=== PATIENT | male | born 1960 | race Caucasian/White ===

== ENCOUNTER → 2021-07-18 08:18 | Outpatient (BNVA) | payer MEDICARE, BC, SELFPAY | PROVIDERS: PCP Nurse Practitioner Family; Visit Provider Internal Medicine | DX: M25.50 Pain in unspecified joint (principal); M54.2 Cervicalgia; R76.8 Other specified abnormal immunological findings in serum; Z11.59 Encounter for screening for other viral diseases; M10.9 Gout, unspecified; Z11.1 Encounter for screening for respiratory tuberculosis; B35.1 Tinea unguium; L85.3 Xerosis cutis; Z87.891 Personal history of nicotine dependence | CPT/HCPCS: 99204 ==

== ENCOUNTER 2021-07-18 10:12 | Outpatient (CLI) | payer MEDICARE, BC, SELFPAY ==
--- NOTE | 2021-07-18 10:43 | XR_ITS ---
WS: [email or web address] Lateral views of cervical spine in the flexion, extension and neutral positions. 07/18/2021 Clinical Data: M10.9 - Gout, unspecified Comparison: Cervical spine, 12/25/2013. Findings: There is anterior cervical disc fusion at C3-C4 and C5-C6. There are large anterior osteophytes at C4 -C5 with disc narrowing. Flexion and extension effusions are stable and there is no subluxation. XR/XR cervical spine fl/ex [id number] Impression: 1. Anterior cervical disc fusions at C3-C4 and C5-C6 which are stable on flexio n and extension. 2. Anterior osteophytes at C4-C5 with disc narrowing.
--- NOTE | 2021-07-18 10:43 | XR_ITS ---
WS: [email or web address] Right hand, 2 views, 07/18/2021 Clinical Data: M10.9 - Gout, unspecified Comparison: None. Findings: No fractures or dislocations are seen. The soft tissues are unremarkable. There is degene rative change of the right third finger DIP joint.No periarticular demineralization or calcifications are seen. 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
--- NOTE | 2021-07-18 10:43 | XR_ITS ---
WS: [email or web address] Left hand, 2 views, 07/18/2021 Clinical Data: M10.9 - Gout, unspecified Comparison: None. Findings: No fractures or dislocations are seen. The soft tissues are unremarkable. There is osteoarthritic julienne nge at the left first MCP joint. There is a calcification adjacent to the left fifth finger DIP joint . No periarticular demineralization is seen. XR/XR hand LT 2V [id number] Impression: 1. 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 2. Small calcification adjacent to left fifth finger DIP joint.
--- NOTE | 2021-07-18 10:43 | XR_ITS ---
WS: [email or web address] Lumbar spine, 3 views, 07/18/2021 Clinical Data: M10.9 - Gout, unspecified Comparison: None. Findings: No compression fractures or subluxation is seen. There is degenerative disc narrowing at all levels f rom T12-L1 through L5-S1. There are prominent anterior osteophytes at all lumbar levels. The transver se processes and SI joints are normal. There are laminectomies at L4 and L5. There is calcification wall of the abdominal aorta but no aneurysm. XR/XR lumbar spine 2-3V* [id number] Impression: Severe osteoarthritis of all lumbar vertebral bodies with degenerative disc vargas rowing at all lumbar levels.
--- NOTE | 2021-07-18 10:43 | XR_ITS ---
WS: [email or web address] Right foot, 2 views, 07/18/2021 Clinical Data: M25.50 - Pain in unspecified joint Comparison: None. Findings: No fractures or dislocations are seen. No bone destruction or erosion is noted. There is osteoarthrit is of the tarsal bones. There is osteoarthritic narrowing of the right first MTP joint.There is a lar ge plantar spur. XR/XR foot RT 2V [id number] Impression: Osteoarthritis of the tarsal bones and the right first MTP joint.
--- NOTE | 2021-07-18 10:43 | XR_ITS ---
WS: [email or web address] Sacroiliac joints, 3 views, 07/18/2021 Clinical Data: L40.9 - Psoriasis, unspecified Comparison: None. Findings: The SI joints are normal in width. No erosion, sclerosis or destruction is seen. There are no fractur es or dislocations. The adjacent visualized pelvis and hips are unremarkable. XR/XR sacroiliac jts m 3V [id number] Impression: Negative SI joints.
--- NOTE | 2021-07-18 10:43 | XR_ITS ---
WS: [email or web address] Left foot, 2 views, 07/18/2021 Clinical Data: M25.50 - Pain in unspecified joint Comparison: None. Findings: No fractures or dislocations are seen. No bone destruction or erosion is noted. There is osteoarthrit ic change of the tarsal bones. There is osteoarthritic narrowing of the left first MTP joint. There i s a large plantar spur. XR/XR foot LT 2V [id number] Impression: Osteoarthritis of the tarsal bones and left first MTP joint.
--- NOTE | 2021-07-18 10:43 | XR_ITS ---
WS: [email or web address] Left ankle, 3 views, 07/18/2021 Clinical Data: M10.9 - Gout, unspecified Comparison: None. Findings: No fractures or dislocations are seen. The ankle mortise is normal. The talus and calcaneus are unrem arkable. There is soft tissue swelling over the medial and lateral malleolus.There is a large plantar spur. XR/XR ankle LT min 3V* [id number] Impression: Soft tissue swelling over medial and lateral malleolus.
--- NOTE | 2021-07-18 10:43 | XR_ITS ---
WS: [email or web address] Right ankle, 3 views, 07/18/2021 Clinical Data: M10.9 - Gout, unspecified Comparison: None. Findings: No fractures or dislocations are seen. The ankle mortise is normal. There is osteoarthritic change of the articulation between the talus and navicular. There is a large plantar spur.There is irregularit y inferior to the tip of the lateral malleolus and of the medial malleolus. There is osteoarthritic c hange adjacent to the medial aspect of the talus XR/XR ankle RT min 3V* [id number] Impression: Osteoarthritis of the tarsal bones.
[2021-07-18 11:52] LABS: Basophils % 0.3 %; Eosinophils # 0.2 10^3/uL (0.0-0.8); Eosinophils % 1.9 %; Hematocrit 45.5 % (42.0-52.0); Hemoglobin 14.6 g/dL (11.7-16.6); Lymphocytes # 2.7 10^3/uL (0.8-4.8); Lymphocytes % 23.1 %; Mean Corpuscular HGB Conc 32.1 g/dL (30.0-36.0); Mean Corpuscular Hemoglobin 27.9 pg (28.0-34.0); Mean Platelet Volume 11.7 fL (7.4-10.4); Monocytes # 0.8 10^3/uL (0.2-0.9); Monocytes % 7.2 %; Neutrophils # 7.68 10^3/uL (1.8-7.7); Neutrophils % 67.2 %; Nucleated Red Blood Cells % 0 %; Platelet Count 218 10^3/cmm (130-400); Red Blood Count 5.23 10^6/uL (4.1-5.3); Red Cell Distribution Width 13.5 % (12.1-15.1); White Blood Count 11.5 10^3/uL (4.0-10.0)
[2021-07-18 12:06] LABS: Add Urine Microscopic? YES; Bilirubin Urine Neg (Negative); Blood Urine 3+ (Negative); Glucose Urine UA Norm (Normal); Ketones Urine Negative (Negative); Leukocyte Esterase Urine Negative (Negative); Nitrate Urine Negative (Negative); Protein Urine Neg (Negative); Urine Appearance Clear (CLEAR); Urine Color Yellow (Yellow); Urobilinogen Urine Norm (Negative); pH Urine 7 (5-7)
[2021-07-18 12:16] LABS: Add Urine Culture? Yes; Bacteria Urine TRACE /hpf; Mucus Urine TRACE /hpf; RBC Urine 40-50 /hpf (0-2); Squamous Epithelial Cell Urine 0-4 /hpf (0-5)
[2021-07-18 12:25] LABS: Calcium 8.9 mg/dL (8.5-10.5)
[2021-07-18 12:32] LABS: Parathyroid Hormone 61.4 pg/mL (15-65)
[2021-07-18 12:44] LABS: 25 Hydroxy Vitamin D 19 ng/mL (30-100); Alanine Aminotransferase 35 U/L (0-41); Alkaline Phosphatase 87 IU/L (40-130); Anion Gap 13.1 (5-19); Aspartate Amino Transferase 25 U/L (0-40); Blood Urea Nitrogen 9 mg/dL (8-23); C Reactive Protein 4.3 mg/L (0.0-4.9); Calcium 8.9 mg/dL (8.5-10.5); Carbon Dioxide 27 mmol/L (22-29); Chloride 106 mmol/L (98-107); Ferritin 185 ng/mL (30-400); Globulin 2.9 g/dL (1.3-4.6); Glomerular Filtration Rate 167.9 mL/min (90-130); Glucose 95 mg/dL (65-115); Iron 83 ug/dL (59-158); Magnesium 2.1 mg/dL (1.7-2.3); Osmolality Calculated 292 mOsm/kg (285-295); Phosphorus 2.4 mg/dL (2.5-4.5); Potassium 4.1 mmol/L (3.5-5.1); Sodium 142 mmol/L (136-145); Thyroid Stimulating Hormone 0.79 uIU/mL (0.27-4.20); Total Bilirubin 0.6 mg/dL (0.15-1.2); Total Protein 6.9 g/dL (6.6-8.7); Uric Acid 7.1 mg/dL (3.4-7.0); Vitamin B12 381 pg/mL (232-1245)
[2021-07-18 12:48] LABS: Hepatitis B Core AB, Total Non-Reactive (Nonreactive); Hepatitis B Surface Antigen Non-Reactive (Nonreactive); Hepatitis C Virus Antibody Non-Reactive (Nonreactive)
[2021-07-21 14:47] LABS: CENTROMERE B ANTIBODY <1.0 NEG AI (<1.0 NEG); JO-1 ANTIBODY <1.0 NEG AI (<1.0 NEG); RNP ANTIBODY <1.0 NEG AI (<1.0 NEG); SCL-70 ANTIBODY <1.0 NEG AI (<1.0 NEG); SJOGREN'S ANTIBODY (SS-A) <1.0 NEG AI (<1.0 NEG); SM ANTIBODY <1.0 NEG AI (<1.0 NEG); SS-B <1.0 NEG AI (<1.0 NEG)
[2021-07-21 14:52] LABS: COMPLEMENT, TOTAL (CH50) >60 U/mL (31-60)
[2021-07-21 14:58] LABS: COMPLEMENT COMPONENT C3C 198 mg/dL (82-185); COMPLEMENT COMPONENT C4C 35 mg/dL (15-53)
[2021-07-21 15:10] LABS: Erythrocyte Sedimentation Rate 9 mm/hr (0-10)
[2021-07-21 15:43] LABS: Quantiferon Mitogen >10.00 IU/mL; Quantiferon Nil 0.02 IU/mL; Quantiferon Plus TB2 0.01 IU/mL; Quantiferon TB Gold NEGATIVE (NEGATIVE)
[2021-07-21 16:13] LABS: Cyclic Citrullinated Peptide <16 UNITS
[2021-07-22 14:22] LABS: THYROID PEROXIDASE ANTIBODIES 1 IU/mL (<9)
[2021-07-22 16:23] LABS: ANA SCREEN, IFA NEGATIVE (NEGATIVE)
[2021-07-24 15:27] LABS: DNA AB (DS) CRITHIDIA,IFA NEGATIVE (NEGATIVE)
== END 2021-07-18 10:13 | disposition home or self-care (01) ==
LOC: RAD 10:37
PROVIDERS: PCP Nurse Practitioner Family; Visit Provider Internal Medicine
DX: E78.5 Hyperlipidemia, unspecified (principal); L85.3 Xerosis cutis; M10.9 Gout, unspecified; M19.90 Unspecified osteoarthritis, unspecified site; Z98.890 Other specified postprocedural states; L40.9 Psoriasis, unspecified; M25.50 Pain in unspecified joint; D64.9 Anemia, unspecified; Z11.59 Encounter for screening for other viral diseases; Z11.1 Encounter for screening for respiratory tuberculosis
CPT/HCPCS: 36415; 72040; 72100; 72202; 73120; 73610; 73620; 80053; 81001; 82306; 82310; 82607; 82728; 83540; 83735; 83970; 84100; 84443; 84550; 85025; 85651; 86140; 86160; 86162; 86200; 86235; 86255; 86376; 86431; 86480; 86704; 86803; 87086; 87340

== ENCOUNTER → 2021-08-01 10:04 | Outpatient (BNVA) | payer MEDICARE, BC, SELFPAY | PROVIDERS: PCP Nurse Practitioner Family; Visit Provider Internal Medicine | DX: M25.50 Pain in unspecified joint (principal); E79.0 Hyperuricemia without signs of inflammatory arthritis and tophaceous disease; M48.10 Ankylosing hyperostosis [Forestier], site unspecified; M54.2 Cervicalgia; E55.9 Vitamin D deficiency, unspecified; E83.39 Other disorders of phosphorus metabolism | CPT/HCPCS: 99214 ==

== ENCOUNTER → 2023-05-31 14:17 | Outpatient (BNVA) | payer MEDICARE, BC, SELFPAY | PROVIDERS: PCP Nurse Practitioner Family; Referring Provider Nurse Practitioner Family; Visit Provider Internal Medicine Cardiovascular Disease | DX: M79.89 Other specified soft tissue disorders (principal); R06.02 Shortness of breath; I10 Essential (primary) hypertension; R06.09 Other forms of dyspnea | CPT/HCPCS: 36415; 80048; 83880; 99204 ==

== ENCOUNTER 2023-06-16 11:25 | Outpatient (CLI) | payer MEDICARE, BC, SELFPAY ==
--- NOTE | 2023-06-16 12:00 | USCV_ITS ---
Shannon Sofia Age: 63 Gender: M : 1960 Exam Date: 06/16/2023 11:58 Ordering Phys: Geno Hartley MD ([email or web address]) Technologist: CT Exam Location: [facility] – [place] Indication: HISTORY: PROCEDURES: FINDINGS: The veins were found to be easily compressible with spontaneous blood flow. Non pulsatile flow pattern. No significant venous reflux were noted CONCLUSIONS No evidence of DVT in the above-mentioned identifiable veins on the left side No significant venous reflux were noted in the above-mentioned veins Dr Geno Hartley MD [facility] (Electronically Signed) Final Date: 16 June 2023 18:49 S
--- NOTE | 2023-06-16 13:30 | USCV_ITS ---
Shannon Sofia Age: 63 Gender: M : 1960 Exam Date: 06/16/2023 12:15 Ordering Phys: Geno Hartley MD ([email or web address]) Technologist: CT Exam Location: [facility] – [place] Indication: BP: 128 / 75 HR: 57 Rhythm: Sinus Technical Quality: Adequate MEASUREMENTS (Male / Female) Normal Values 2D ECHO LV Chamber Size 5.2 cm RV Chamber Size 4.0 cm LVOT Diameter 2.2 cm LV Ejection Fraction MOD 2C 53.8 % LV Ejection Fraction 2C AL 55.3 % LA Diameter 5.1 cm LA Width 3.9 cm LA Height 4.8 cm RA Width 4.0 cm RA Height 5.2 cm Aorta at Sinotubular Diameter 2.5 cm M-MODE Aortic Annulus Diameter 3.5 cm LA Ao Ratio MM 1.5 MV E Point Septal Separation 1.1 cm DOPPLER AV Peak Velocity 123.0 cm/s LVOT Peak Velocity 74.0 cm/s AV Area Cont Eq vti 2.7 cm squared AV Area Cont Eq pk 2.3 cm squared MV Peak Velocity 88.0 cm/s MV Area PHT 2.9 cm squared Mitral E to A Ratio 0.9 MV E' Velocity 41.0 cm/s Mitral E to MV E' Ratio 7.7 Mitral E to LV E' Lateral Ratio 7.3 Mitral E to LV E' Septal Ratio 8.2 TR Peak Velocity 96.3 cm/s TR Peak Gradient 3.7 mmHg TV Peak E Velocity 53.0 cm/s Right Atrial Pressure 3.0 mmHg Pulmonary Artery Systolic Pressu 6.7 mmHg PV Peak Velocity 95.0 cm/s FINDINGS Left Ventricle Normal left ventricular size and systolic function, EF 57 %. No regional wall motion abnormalities. Grade I/IV diastolic dysfunction (abnormal relaxation filling pattern), normal to mildly elevated filling pressures. Right Ventricle The right ventricle is normal in size and function. Right Atrium Mildly increased right atrial size. Left Atrium Mildly increased left atrial size. Mitral Valve No gross abnormalities noted Aortic Valve Thickened aortic valve. Tricuspid Valve No gross abnormalities noted Pulmonic Valve No gross abnormalities noted Pericardium Normal pericardium without effusion. Aorta Normal ascending aorta dimension. IVC Inferior vena cava not visualized. CONCLUSIONS Normal left ventricular size and systolic function, EF 57 %. No regional wall motion abnormalities. Grade I/IV diastolic dysfunction (abnormal relaxation filling pattern), normal to mildly elevated filling pressures. Mild biatrial enlargement. Thickened aortic valve. There is no pericardial effusion. Technically somewhat difficult study because of poor ultrasonic window Dr Geno Hartley MD [facility] (Electronically Signed) Final Date: 17 June 2023 09:22 S
== END 2023-06-16 11:26 | disposition home or self-care (01) ==
PROVIDERS: PCP Nurse Practitioner Family; Visit Provider Internal Medicine Cardiovascular Disease
DX: R06.02 Shortness of breath (principal); R06.09 Other forms of dyspnea; I51.89 Other ill-defined heart diseases; I51.7 Cardiomegaly; I35.8 Other nonrheumatic aortic valve disorders; M79.89 Other specified soft tissue disorders
CPT/HCPCS: 93306; 93971

== ENCOUNTER 2025-05-10 08:01 | Outpatient (CLI) | payer MEDICARE, BC, SELFPAY ==
--- NOTE | 2025-05-10 08:09 | USCV_ITS ---
Shannon Sofia Age: 65 Gender: M : 1960 Exam Date: 05/10/2025 08:16 Ordering Phys: Colleen Bush APN Technologist: JOCELYNE Exam Location: [facility] Indication: LLE Swelling HISTORY: Lower extremity swelling. PROCEDURES: Venous duplex imaging was performed in only the left lower extremity. The following venous structures were evaluated: common femoral vein, profunda vein, proximal portion of the greater saphenous vein, superficial femoral vein, and the popliteal vein. In addition, the posterior tibial and peroneal trunk were evaluated. Serial compression, augmentation maneuvers, and spectral Doppler flow evaluation were performed. FINDINGS: No evidence of DVT seen in any vessel visualized at this time. CONCLUSIONS No evidence of left lower extremity DVT. Judson Rubalcava MD (Electronically Signed) Final Date: 10 May 2025 08:42 S
== END 2025-05-10 08:02 | disposition home or self-care (01) ==
LOC: RAD 08:02
PROVIDERS: PCP Nurse Practitioner Family; Visit Provider Nurse Practitioner Family
DX: M79.605 Pain in left leg (principal)
CPT/HCPCS: 93971